=== PATIENT | female | born 1965 | race Caucasian/White ===

== ENCOUNTER 2020-06-01 09:53 | Emergency (ER) | payer OTHER ==
[~2020-06-01] VITALS: Ht 170.2 cm; Wt 118.6 kg
[2020-06-01 10:02] VITALS: BP 150/94
[2020-06-01] MEDS ORDERED: DIPH,PERTUSS(ACELL),TET VAC/PF 0.5 ML SYRINGE. VAX IM ONE (10:30)
--- NOTE | 2020-06-01 11:06 | RAD ---
XR HAND_RIGHT 3 VIEWS History: Reason: fall, pain / Spl. Instructions: / History: Comparison: None available Technique: 3 views of the right hand. Findings: Normal mineralization. There is no evidence for fracture. Alignment is normal. No destructive osseous lesions are seen. Mild degenerative changes of the interphalangeal joints. Soft tissues are normal. Impression: 1. No acute osseous abnormality of the right hand. Electronically signed by: Jamie Cai MD (06/01/2020 11:03 AM) [facility]
--- NOTE | 2020-06-01 11:07 | RAD ---
XR KNEE 4 VIEWS WITH PATELLA_RT History: Reason: fall, pain / Spl. Instructions: / History: Comparison: None. Technique: 4 views of the right knee. Findings: Normal mineralization. There is no evidence for fracture. Alignment is normal. No destructive osseous lesions are seen. Minimal degenerative changes with tiny tricompartmental osteophytes. Mild prepatellar swelling.. No significant effusion. Impression: 1. Mild degenerative changes of the right knee without acute osseous abnormality. Electronically signed by: Jamie Cai MD (06/01/2020 11:05 AM) [facility]
--- NOTE | 2020-06-01 11:18 | PHYS DOC ---
Past History Past Medical History: Hypothyroid Past Surgical History: Knee Replacement Additional Past Surgical Histo: 2003 Alcohol Use: Occasionally Adult General Chief Complaint Chief Complaint: [facility] HPI Patient is a 55-year-old female who presents to the emergency room after having a mechanical fall in the parking lot. Patient tripped over a curb catching herself with her hand. She states that she fell face first. She is having pain in her right hand and right knee. She states her left hand and left knee are also scraped up but do not have significant pain. She did hit her face and glasses. She denies any significant nose pain. She does have some mild left- sided neck pain when she moves her neck but otherwise does not have any neck pain. Denies any numbness or weakness. She states her tetanus is not up-to-d ate. She did not lose consciousness. She has some mild nausea with no vomiting she denies any kind difficulty with gait or confusion she is not on any blood thinners. Review of Systems Review of Systems Complete ROS is negative unless otherwise documented in HPI Current Medications Current Medications Current Medications Medications (Trade) Dose Ordered Sig/Krzysztof Start Time Stop Time Status Last Admin Dose Admin Diphtheria/ Pertussis/Tetanus Vacc (ADACEL TDap SYRINGE) 0.5 ml ONCE ONCE 06/01/20 10:30 06/01/20 10:31 UNV Allergies Allergies Allergies Coded Allergies Type Severity Reaction Last Updated Verified No Known Drug Allergies 06/01/20 No Physical Exam Physical Exam General: Awake, alert, NAD. Well Nourished, well hydrated. Cooperative HEENT: Abrasions to the right side of the nose, EOMI, PERRL, airway patent, moist oral mucosa, no nasal septal hematoma, no facial crepitus or deformity Neck: Supple, trachea midline, no C-spine tenderness, mild left-sided paraspinal tenderness Respiratory: CTA bilaterally, normal effort, no wheezing/crackles, no crepitus CV: RRR, no murmur, cap refill <2, 2+ bilateral radial/DP pulses GI: Soft, nondistended, nontender, no masses MSK: Right knee with surrounding swelling anteriorly, abrasion to bilateral knees, pelvis stable and nontender. Right hand: Intact range of motion, no tenderness along the snuffbox, abrasions along the palm of the hand, pain with closing hand Skin: Warm, dry, multiple abrasions Neuro: A&O x3, speech NL, sensory and motor grossly intact, no focal deficits Psych: Normal affect, normal mood, not suicidal or homicidal Current Patient Data Vital Signs Vital Signs Date Time Temp Pulse Resp B/P (MAP) Pulse Ox O2 Delivery O2 Flow Rate FiO2 06/01/20 10:02 98.1 87 17 150/94 (112) 98 Room Air EKG EKG [] Radiology/Procedures Radiology/Procedures [] Heart Score Risk Factors: Risk Factors: DM, Current or recent (<one month) smoker, HTN, HLP, family history of CAD, obesity. Risk Scores: Risk Factors: DM, Current or recent (<one month) smoker, HTN, HLP, family history of CAD, obesity. Course & Med Decision Making Course & Med Decision Making Pertinent Labs and Imaging studies reviewed. (See chart for details) Patient is a 55-year-old female presents to the emergency room after having a fall from standing. Patient did hit her face on the curb but did not lose consciousness. She has some mild nausea. She does not have any neurologic deficits. She does not have any kind of vomiting or confusion. She remembers the entire event before and afterwards. At this time with CT [place] head rules patient does not need a CT of her head. She does not have any midline cervical tenderness that would require a CT of the spine. She does have tenderness along her right hand with painful movement. And tenderness along the anterior kneecap. X-rays will be ordered of the knee and hand. Tetanus was updated. X-ray is normal. Patient is able to fully close her hand now. Patient's test results and vitals while in the ED were fully reviewed and disc ussed with the patient. Patient is stable and at this time does not need admission to the hospital. We have discussed strict return precautions and the importance of following up with their Primary Care Physician. Patient stated understanding and was given an opportunity to ask any questions. Patient is in agreement with plan. Dragon Disclaimer Dragon Disclaimer This electronic medical record was generated, in whole or in part, using a voice recognition dictation system. Departure Departure: Impression: Primary Impression: Fall Additional Impressions: Hand injury Closed head injury Disposition: 01 DC HOME SELF CARE/HOMELESS Condition: STABLE Referrals: ROHAN CRUZ (PCP) Patient Instructions: Head Injury, Adult Problem Qualifiers NATHAN GUTIERREZ MD Jun 01, 2020 11:18
== END 2020-06-01 12:03 | disposition home or self-care (01) ==
LOC: ER 09:53
DX: S00.31XA Abrasion of nose, initial encounter (principal); M79.641 Pain in right hand; M25.561 Pain in right knee; E03.9 Hypothyroidism, unspecified; Z98.890 Other specified postprocedural states; W18.39XA Other fall on same level, initial encounter; Y93.89 Activity, other specified; Y92.89 Other specified places as the place of occurrence of the external cause; Y99.8 Other external cause status
CPT/HCPCS: 73130; 73564; 90471; 90715; 99284

== ENCOUNTER → 2020-06-06 | Outpatient (CLI) | payer OTHER ==
[2020-06-01 10:02] VITALS: BP 150/94
--- NOTE | 2020-06-06 09:03 | RAD ---
3 views the right wrist dated 06/06/2020. No comparison available. CLINICAL INDICATION: Pain after fall. Findings 3 views the right wrist show normal bony alignment. No displaced fracture. No acute osseous or artic ular abnormality. IMPRESSION: No acute findings. Electronically signed by: Haroon Melvin MD (06/06/2020 9:01 AM) [id number]
== END ==
LOC: PMG 07:57
PROVIDERS: ATTEND Physician Assistant Medical
DX: M25.551 Pain in right hip (principal)
CPT/HCPCS: 73110